=== PATIENT | female | born 1955 | race Hispanic/Latino ===

== ENCOUNTER 2019-01-15 15:14 | Outpatient (CLI) | payer BC ==
--- NOTE | 2019-01-15 16:27 | MRI ---
MRI OF THE LEFT KNEE 01/15/19 PROVIDED CLINICAL HISTORY: Pain. FINDINGS: The anterior cruciate ligament, posterior cruciate ligament, medial collateral ligament and lateral l igamentous complex demonstrates an intact MR appearance, as does the extensor mechanism. There is full thickness radial tearing of the posterior horns of the medial meniscus at the meniscal root. There is extrusion of the medial meniscal body. The lateral meniscus demonstrates no evidence f or tear. There is articular cartilage loss involving the central weightbearing portions of the medial femorotibial joint which appear full thickness in regions. There is articular cartilage irregularity involving the median ridge of the patella with partial thic kness fissuring. There is a moderate-large knee joint effusion with a conspicuous incomplete suprapatellar plica and f indings suggesting synovitis. No focal concerning regional marrow or muscular signal abnormality apparent. IMPRESSION: 1. Medial meniscal tear as described. 2. 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 3. Large knee joint effusion with findings suggesting synovitis. POS: OFF
== END 2019-01-15 15:15 | disposition home or self-care (01) ==
LOC: MRI 15:14
PROVIDERS: ATTEND Orthopaedic Surgery
DX: M25.562 Pain in left knee (principal); S83.207A Unspecified tear of unspecified meniscus, current injury, left knee, initial encounter; M25.462 Effusion, left knee